=== PATIENT | male | born 1995 | race Caucasian/White ===

== ENCOUNTER 2019-03-30 15:51 | Emergency (ER) | payer OTHER, SELFPAY ==
[~2019-03-30] VITALS: Ht 180.3 cm; Wt 95.0 kg
[2019-03-30 15:51] VITALS: BP 135/70
== END 2019-03-30 18:52 | disposition left against medical advice (07) ==
LOC: M ED 15:51
DX: Z53.29 Procedure and treatment not carried out because of patient's decision for other reasons (principal)